=== PATIENT | female | born 1945 | race Caucasian/White ===

== ENCOUNTER → 2018-01-21 | Outpatient (CLI) | payer OTHER ==
[~2018-01-21] MED LIST: ASCORBIC ACID500 M3 PO; ASPIR 8181 M1 PO; FOLIC ACID0.4 MG PO; GLUCOSAMINE-CH1 EA47 PO; TIROSINT75 MCG PO; VITAMIN D5000 UNI1 PO; VITAMIN E200 UNI2 PO
[2018-01-21 09:28] LABS: PTT 22.3 SEC (25-37)
[2018-01-21 09:49] LABS: INTER. NORMALIZED RATIO 1.1
[2018-01-21 10:55] LABS: HEMATOCRIT 42.7 % (36.0-46.0); HEMOGLOBIN 14.2 G/DL (11.9-15.5); MCH 31.3 PG (29.0-34.0); MCHC 33.3 G/DL (30.0-36.0); MCV 94.3 FL (83-99); PLATELET COUNT 187 K/uL (156-360); RBC DIS.WIDTH-CV 12.2 % (11.8-14.6); RBC DIS.WIDTH-SD 42.4 % (39-53); RED BLOOD COUNT 4.53 M/uL (3.80-5.20); WHITE BLOOD COUNT 6.3 K/uL (4.1-10.2)
== END | disposition home or self-care (01) ==
LOC: RAD 01-19 09:00 → OPR 01-19 09:00 → EDSTATUS 08:00 → OPR 08:00
PROVIDERS: Radiology Diagnostic Radiology
DX: C22.7 Other specified carcinomas of liver (principal); K86.9 Disease of pancreas, unspecified; Z79.82 Long term (current) use of aspirin; Z88.5 Allergy status to narcotic agent
CPT/HCPCS: 77012; 85027; 85610; 85730; 88305; 88341 TC; 88342 TC; J3010